=== PATIENT | male | born 1950 | race Caucasian/White ===

== ENCOUNTER 2024-09-13 17:53 | Inpatient (IN) | payer OTHER ==
[~2024-09-13] VITALS: Ht 188 cm; Wt 50.6 kg
[2024-09-13 18:08] VITALS: BP 103/68; PULSE 115; RESP 22; TEMP 98.2; O2SAT 95
[2024-09-13] MEDS: NACL 0.9% 1,000 ML IV ONE (18:43)
[2024-09-13 19:14] LABS: BASOPHILS # (AUTO) 0.1 K/uL (0.00-0.22); BASOPHILS % (AUTO) 1.2 % (0.0-2.0); EOSINOPHILS % (AUTO) 0.2 % (0.0-4.0); HEMATOCRIT 35.9 % (36-52); HEMOGLOBIN 11.6 g/dL (12.0-18.0); LYMPHOCYTES # (AUTO) 1.8 K/uL (2.0-11.5); LYMPHOCYTES % (AUTO) 16.8 % (20.5-51.1); MEAN CORPUSCULAR HEMOGLOBIN 27 pg (27-31); MEAN CORPUSCULAR HGB CONC 32 g/dL (33-37); MEAN CORPUSCULAR VOLUME 83.9 fL (80-94); MONOCYTES # (AUTO) 1.1 K/uL (0.8-1.0); MONOCYTES % (AUTO) 10.3 % (1.7-9.3); NEUTROPHILS # (AUTO) 7.5 K/uL (1.8-7.7); NEUTROPHILS % (AUTO) 71.5 % (42.2-75.2); PLATELET COUNT (AUTO) 418 K/uL (140-450); RED BLOOD CELL COUNT(AUTO) 4.28 MIL/uL (4.20-6.10); RED CELL DISTRIBUTION WIDTH 14.8 % (11.6-13.7); WHITE BLOOD COUNT (AUTO) 10.5 K/uL (4.8-10.8)
[2024-09-13 19:29] LABS: ANION GAP 10.7 (8-16); CALCIUM 9.7 mg/dL (8.5-10.1); CARBON DIOXIDE 33.9 mmol/L (21-32); CHLORIDE 102 mmol/L (98-107); CREATININE 1.7 mg/dL (0.6-1.3); GLUCOSE 111 mg/dL (74-106); POTASSIUM 4.6 mmol/L (3.5-5.1); SODIUM SERUM 142 mmol/L (136-145); UREA NITROGEN, BLOOD 36 mg/dL (7-18)
[2024-09-13 19:32] LABS: FLU A ANTIGEN negative (NEGATIVE); FLU B ANTIGEN negative (NEGATIVE)
[2024-09-13 19:37] VITALS: O2SAT 97
[2024-09-13 19:46] LABS: ALANINE AMINOTRANSFERASE 13 U/L (12-78); ALBUMIN 2.9 g/dL (3.4-5.0); ALKALINE PHOSPHATASE 81 U/L (50-136); ASPARTATE AMINOTRANSFERASE 16 U/L (15-37); BILIRUBIN,DIRECT 0.1 mg/dL (0.0-0.3); CREATINE KINASE, TOTAL 180 U/L (39-308); MAGNESIUM 1.9 mg/dL (1.8-2.4); PHOSPHORUS 3.5 mg/dL (2.5-4.9); THYROID STIMULATING HORMONE 4.02 uIU/mL (0.34-3.74); TOTAL BILIRUBIN 0.3 mg/dL (0.0-1.0); TOTAL PROTEIN, SERUM 8.3 g/dL (6.4-8.2)
[2024-09-13 19:47] LABS: APPEARANCE,URINE CLEAR (CLEAR); BILIRUBIN,URINE 1+ (NEGATIVE); BLOOD, URINE TRACE-I (NEGATIVE); COLOR,URINE YELLOW (YELLOW); LEUKOCYTE ESTERASE ,URINE 2+ (NEGATIVE); NITRITE, URINE POSITIVE (NEGATIVE); PH,URINE 8.5 (5.0-9.0); PROTEIN,URINE 2+ (NEGATIVE); UGLUCOSE NEGATIVE (NEGATIVE); UROBILINOGEN,URINE 0.2 EU/dL (0.2 - 1)
[2024-09-13 19:56] LABS: BACTERIA,URINE >30 (MANY) /HPF (None Seen); MUCUS,URINE 1+ /LPF (None Seen); SQUAMOUS EPITHELIAL CELL,UR 0-3 (FEW) /LPF (0-3 (FEW)); TRICHOMONAS,URINE None Seen /HPF (None Seen); WHITE BLOOD CELL CASTS,URINE None Seen /LPF (None Seen); YEAST,URINE None Seen /HPF (None Seen)
[2024-09-13 20:00] LABS: ICTOTEST NEGATIVE (NEGATIVE)
[2024-09-13] MEDS ORDERED: CEFEPIME 2,000 MG VIAL IV ONE (20:14)
[2024-09-13] MEDS: CEFEPIME 2,000 MG in DEXTROSE 5% 100 ML IV ONE (20:53)
[2024-09-13 21:32] VITALS: O2SAT 97
[2024-09-13] MEDS: LORazepam 2 MG/ML VIAL IVP ONE (22:45)
[2024-09-13] MEDS: NACL 0.9% 1,000 ML IV SCH (23:24)
[2024-09-13 23:40] VITALS: O2SAT 97
[2024-09-14] VITALS (7 sets, daily range): BP systolic 117–159; BP diastolic 74–94; PULSE 61–117; RESP 18–22; TEMP 96.9–98.3; O2SAT 93–100
[2024-09-14 07:19] LABS: BASOPHILS # (AUTO) 0.1 K/uL (0.00-0.22); BASOPHILS % (AUTO) 0.8 % (0.0-2.0); EOSINOPHILS # (AUTO) 0.1 K/uL (0-0.4); EOSINOPHILS % (AUTO) 0.5 % (0.0-4.0); HEMATOCRIT 35.5 % (36-52); HEMOGLOBIN 11.3 g/dL (12.0-18.0); LYMPHOCYTES # (AUTO) 2.7 K/uL (2.0-11.5); LYMPHOCYTES % (AUTO) 25.5 % (20.5-51.1); MEAN CORPUSCULAR HEMOGLOBIN 27 pg (27-31); MEAN CORPUSCULAR HGB CONC 32 g/dL (33-37); MEAN CORPUSCULAR VOLUME 84.2 fL (80-94); MONOCYTES # (AUTO) 1.2 K/uL (0.8-1.0); NEUTROPHILS # (AUTO) 6.5 K/uL (1.8-7.7); NEUTROPHILS % (AUTO) 62.2 % (42.2-75.2); PLATELET COUNT (AUTO) 418 K/uL (140-450); RED BLOOD CELL COUNT(AUTO) 4.21 MIL/uL (4.20-6.10); RED CELL DISTRIBUTION WIDTH 14.9 % (11.6-13.7); WHITE BLOOD COUNT (AUTO) 10.5 K/uL (4.8-10.8)
[2024-09-14 07:32] LABS: ANION GAP 10.3 (8-16); CALCIUM 9.4 mg/dL (8.5-10.1); CHLORIDE 105 mmol/L (98-107); CREATININE 1.1 mg/dL (0.6-1.3); GLUCOSE 83 mg/dL (74-106); POTASSIUM 4.3 mmol/L (3.5-5.1); SODIUM SERUM 143 mmol/L (136-145); UREA NITROGEN, BLOOD 25 mg/dL (7-18)
[2024-09-14] MEDS: NACL 0.9% 1,000 ML IV SCH (11:25)
[2024-09-14] MEDS ORDERED: POTASSIUM CHLORIDE 10 MEQ TABER PO PRN (11:25)
[2024-09-14] MEDS ORDERED: ACETAMINOPHEN 325 MG TAB PO PRN (11:25)
[2024-09-14] MEDS ORDERED: ONDANSETRON 4 MG/2 ML VIAL IVP PRN (11:25)
[2024-09-14 12:50] LABS: INR 1.1 (0.8-1.2); PARTIAL THROMBOPLASTIN TIME 31.2 secs (22-35.6); PROTHROMBIN TIME 11.4 secs (10.8-13.4)
[2024-09-14 12:54] LABS: LACTIC ACID 1.1 mmol/L (0.4-2.0)
[2024-09-14 13:01] LABS: CHOL/HDL RATIO 2.8 (1-4.5); FREE T4 (FREE THYROXINE) 1.67 ng/dL (0.76-1.46); MAGNESIUM 1.7 mg/dL (1.8-2.4); PHOSPHORUS 2.8 mg/dL (2.5-4.9); THYROID STIMULATING HORMONE 3.84 uIU/mL (0.34-3.74)
[2024-09-14] MEDS ORDERED: APIX5TAB PO (15:03)
[2024-09-14] MEDS ORDERED: ATI.5 PO (15:03)
[2024-09-14] MEDS ORDERED: DIVA125E1 BU (15:03)
[2024-09-14] MEDS ORDERED: ALFU10TA PO (15:03)
[2024-09-14] MEDS ORDERED: MELA3TER PO (15:03)
[2024-09-14] MEDS ORDERED: MIRABULK PO (15:08)
[2024-09-14] MEDS ORDERED: OMEP10EC PO (15:08)
[2024-09-14] MEDS ORDERED: MEMA5TAB15 PO (15:08)
[2024-09-14 18:08] LABS: AMPHETAMINE, URINE NEGATIVE ng/ml (NEG <=1000); BARBITURATE, URINE NEGATIVE ng/ml (NEG <=200); BENZODIAZEPINE, URINE POSITIVE ng/mL (NEG <=200); CANNABINOID, URINE NEGATIVE ng/mL (NEG <=50); COCAINE, URINE NEGATIVE ng/mL (NEG <=300); OPIATE, URINE POSITIVE ng/mL (NEG <=2000)
[2024-09-14 18:09] LABS: PHENCYCLIDINE SCREEN,URINE NEGATIVE ng/mL (NEG <=25)
[2024-09-14] MEDS: MAG SULF 2000 MG/WATER PREMIX 50 ML IV PRN (18:55)
[2024-09-14] MEDS: DOCUSATE SODIUM 100 MG GELCAP PO SCH (21:00)
[2024-09-14] MEDS: DIVALPROEX SPRINKLES 125 MG CAPDR PO SCH (21:00)
[2024-09-14] MEDS ORDERED: MELATONIN PO SCH (21:00)
[2024-09-14] MEDS: APIXABAN 2.5 MG TAB PO SCH (21:00)
[2024-09-14] MEDS: MEMANTINE 10 MG TAB PO SCH (21:00)
[2024-09-15] VITALS (8 sets, daily range): BP systolic 110–156; BP diastolic 63–96; PULSE 61–112; RESP 17–19; TEMP 96.3–98.1; O2SAT 86–97
[2024-09-15 05:28] LABS: BASOPHILS # (AUTO) 0.1 K/uL (0.00-0.22); BASOPHILS % (AUTO) 0.7 % (0.0-2.0); EOSINOPHILS % (AUTO) 0.4 % (0.0-4.0); HEMATOCRIT 34.9 % (36-52); HEMOGLOBIN 11.2 g/dL (12.0-18.0); LYMPHOCYTES # (AUTO) 2.3 K/uL (2.0-11.5); LYMPHOCYTES % (AUTO) 25.9 % (20.5-51.1); MEAN CORPUSCULAR HEMOGLOBIN 27 pg (27-31); MEAN CORPUSCULAR HGB CONC 32 g/dL (33-37); MEAN CORPUSCULAR VOLUME 84.2 fL (80-94); MONOCYTES % (AUTO) 10.9 % (1.7-9.3); NEUTROPHILS # (AUTO) 5.5 K/uL (1.8-7.7); NEUTROPHILS % (AUTO) 62.1 % (42.2-75.2); PLATELET COUNT (AUTO) 420 K/uL (140-450); RED BLOOD CELL COUNT(AUTO) 4.14 MIL/uL (4.20-6.10); RED CELL DISTRIBUTION WIDTH 14.7 % (11.6-13.7); WHITE BLOOD COUNT (AUTO) 8.8 K/uL (4.8-10.8)
[2024-09-15 06:31] LABS: ANION GAP 12.7 (8-16); CALCIUM 9.4 mg/dL (8.5-10.1); CARBON DIOXIDE 30.3 mmol/L (21-32); CHLORIDE 104 mmol/L (98-107); CREATININE 0.9 mg/dL (0.6-1.3); GLUCOSE 80 mg/dL (74-106); SODIUM SERUM 143 mmol/L (136-145)
[2024-09-15 06:45] LABS: UREA NITROGEN, BLOOD 23 mg/dL (7-18)
[2024-09-15 06:55] LABS: MAGNESIUM 2.3 mg/dL (1.8-2.4)
[2024-09-15] MEDS ORDERED: NON-FORMULARY ITEM (Alfuzosin HCl (Alfuzosin HCl ER) 1 TAB) PO SCH (09:00)
[2024-09-15] MEDS: PANTOPRAZOLE 40 MG INJ VIAL IVP SCH (09:15)
[2024-09-15] MEDS: POLYETHYLENE GLYCOL 17 GM/PKT PO SCH (09:18)
[2024-09-15] MEDS: MELATONIN 3 MG TAB PO PRN (23:12)
[2024-09-16] VITALS: BP 133/72; PULSE 91; RESP 19; TEMP 98.1; O2SAT 93
[2024-09-16 03:55] VITALS: PULSE 75
[2024-09-16 04:00] VITALS: BP 118/69; PULSE 72; RESP 19; TEMP 97.6; O2SAT 95
[2024-09-16 06:09] LABS: BASOPHILS # (AUTO) 0.1 K/uL (0.00-0.22); BASOPHILS % (AUTO) 0.8 % (0.0-2.0); EOSINOPHILS # (AUTO) 0.1 K/uL (0-0.4); EOSINOPHILS % (AUTO) 1.2 % (0.0-4.0); HEMATOCRIT 33.1 % (36-52); HEMOGLOBIN 10.4 g/dL (12.0-18.0); LYMPHOCYTES # (AUTO) 2.2 K/uL (2.0-11.5); LYMPHOCYTES % (AUTO) 26.5 % (20.5-51.1); MEAN CORPUSCULAR HEMOGLOBIN 27 pg (27-31); MEAN CORPUSCULAR HGB CONC 32 g/dL (33-37); MEAN CORPUSCULAR VOLUME 83.9 fL (80-94); MONOCYTES # (AUTO) 0.9 K/uL (0.8-1.0); MONOCYTES % (AUTO) 10.4 % (1.7-9.3); NEUTROPHILS % (AUTO) 61.1 % (42.2-75.2); PLATELET COUNT (AUTO) 407 K/uL (140-450); RED BLOOD CELL COUNT(AUTO) 3.95 MIL/uL (4.20-6.10); RED CELL DISTRIBUTION WIDTH 14.9 % (11.6-13.7); WHITE BLOOD COUNT (AUTO) 8.2 K/uL (4.8-10.8)
[2024-09-16 06:45] LABS: ANION GAP 10.5 (8-16); CALCIUM 9.1 mg/dL (8.5-10.1); CARBON DIOXIDE 31.5 mmol/L (21-32); CHLORIDE 105 mmol/L (98-107); CREATININE 0.8 mg/dL (0.6-1.3); GLUCOSE 83 mg/dL (74-106); SODIUM SERUM 143 mmol/L (136-145); UREA NITROGEN, BLOOD 23 mg/dL (7-18)
[2024-09-16 06:51] LABS: PHOSPHORUS 2.8 mg/dL (2.5-4.9)
[2024-09-16 08:00] VITALS: BP 101/62; PULSE 103; PULSE 111; RESP 18; TEMP 97; O2SAT 96
[2024-09-16 12:00] VITALS: BP 109/71; PULSE 48; PULSE 98; RESP 18; TEMP 97.1; O2SAT 97
[2024-09-16 16:00] VITALS: BP 103/75; PULSE 95; RESP 18; TEMP 97.3; O2SAT 96
[2024-09-16] MEDS: DOCUSATE 100 MG/10 ML UDC GT SCH (16:11)
[2024-09-16] MEDS: LORazepam 0.5 MG TAB PO PRN (16:11)
== END 2024-09-16 17:35 | DRG 871 ==
LOC: MED 17:53 → MTU 22:03
DX: A41.9 Sepsis, unspecified organism (principal); G93.41 Metabolic encephalopathy; N17.0 Acute kidney failure with tubular necrosis; E44.0 Moderate protein-calorie malnutrition; Z68.1 Body mass index [BMI] 19.9 or less, adult; N39.0 Urinary tract infection, site not specified; Z20.822 Contact with and (suspected) exposure to COVID-19; E86.0 Dehydration; N40.1 Benign prostatic hyperplasia with lower urinary tract symptoms; E83.42 Hypomagnesemia; I48.91 Unspecified atrial fibrillation; F03.90 Unspecified dementia, unspecified severity, without behavioral disturbance, psychotic disturbance, mood disturbance, and anxiety; Z88.5 Allergy status to narcotic agent; Z88.8 Allergy status to other drugs, medicaments and biological substances
CPT/HCPCS: 36415; 70450; 71045; 76770; 80048; 80076; 80305; 81001; 82140; 82150; 82550; 83036; 83605; 83690; 83735; 83880; 84100; 84439; 84443; 84484; 85025; 85610; 85730; 87040; 87081; 87086; 92526; 93005; 96361; 96365; 96375; 97163-GP; 97530; 99285; J0692; J0696; J2060; J2470; J7060; Q0092